=== PATIENT | female | born 1990 | race Caucasian/White ===

== ENCOUNTER 2018-12-15 13:58 | Outpatient (CLI) | payer MEDICAID ==
[~2018-12-15] VITALS: Ht 149.9 cm; Wt 60.5 kg
[~2018-12-15 13:58] MED LIST: NEXPLANON68 MG ID
--- NOTE | 2018-12-15 14:04 | NUR ---
1404-36.1WEEK G2L1 PATIENT OF DR. CHRISTIANSON AMBULATORY TO LR6 WITH COMPLAINTS OF LOSING MUCUS PLUG A COUPLE OF DAYS AGO AND "INTERMITTENT CONTRACTIONS SOMETIMES GETTING TO 10 MIN APART" DENIES LOF OR VB. REPORTS GOOD MOVEMNT. ASSISTED INTO GOWN AND PLACED ON EFM. 1413-SVE 2-3/50/-3, VSS, ASSESSMENT COMPLETE. 1500-DR. MARTINEZ UPDATED ON PATIENT, REVIEWED SVE AND STRIP. ORDERS TO D/C HOME IF NO CHANGE IN CERVIX. 1512-SVE BY BOGDAN,RN AND LUCHO ARRIETA NO CHANGE IN CERVIX 2-3/50/-3, BOWI. 1514-OFF EFM. INSTRUCTED ON DISCHARGE INSTURCTIONS. PATIENT DENIES QUESTIONS. 1520-AMBULATORY OFF UNIT.
[2018-12-15 14:16] VITALS: BP 112/69; PULSE 109; TEMP 98.2
[2018-12-15 14:30] VITALS: BP 112/69; PULSE 109; TEMP 98.2
[2018-12-15 15:14] VITALS: BP 106/60; PULSE 93
== END 2018-12-15 15:20 | disposition home or self-care (01) ==
LOC: LDRO 13:58 → LDR 14:04 → LDRO 15:20
DX: O62.9 Abnormality of forces of labor, unspecified (principal); Z3A.36 36 weeks gestation of pregnancy
CPT/HCPCS: OP

== ENCOUNTER 2018-12-21 21:47 | Outpatient (CLI) | payer MEDICAID ==
[~2018-12-21] VITALS: Ht 152.4 cm; Wt 61.8 kg
--- NOTE | 2018-12-21 21:45 | NUR ---
G2L1. 37-0. Ambulatory to LDR 2 with signifcant other. Clean gown on. EFM and TOCO explained and applied. Pt states she has not felt baby move in the past 3 hours. She has tried moving and drink cold fluids and nothing has worked. Pt states baby is normally very active. Denies LOF of vaginal bleeding. Pt states her lower abdomen has been tightening inrreguallarly but she does not think they are contractions. Difficulty tracing contractions due to toco position and mom's movement in bed. RN remains at bedside adjusting monitors and reviewing FHR strip due to central monitoring being down. 2214: FHR 115bpms with moderate varibality, no accels or decels noted. Pt given juice and instructed to drink quickly. RN remains at bedside reviewing FHR strip. 2224: Pt states she is feeling tightening. Contraction palpated moderate with relaxing period. SVE /-2 which is what she was in office last. RN remains at bedside reveiwing FHR strip. 2258: FHR strip reacitive. Pt states she has felt baby move multiple times since being at hospital. called and updated on pts status. See physican notification. 2300: Pt off monitors and educated on new orders. 2313: Discharge education/instructions given to pt and signifant other who verbalize understanding. Pt ambulatory off unit with signifant other.
[2018-12-21 22:01] VITALS: BP 106/70; PULSE 79; TEMP 98
== END 2018-12-21 23:13 | disposition home or self-care (01) ==
LOC: LDRO 21:47
DX: O62.9 Abnormality of forces of labor, unspecified (principal); Z3A.37 37 weeks gestation of pregnancy

== ENCOUNTER 2018-12-23 23:06 | Outpatient (CLI) | payer MEDICAID ==
[~2018-12-23] VITALS: Ht 152.4 cm; Wt 61.8 kg
--- NOTE | 2018-12-23 23:15 | NUR ---
G2L1. 37-2. Ambulatory to LDR 3 with significant other. Clean gown on. EFM and TOCO explained and applied. Pt states she has been paola for the last hour and contractions have been 4-5minutes apart. Denies LOF or vaginal bleeding. Reports good movement. SVE /-2, ballotable. Vital signs and assessment completed. Plan of care explained to pt and significant other who verbalize understanding. Call light within reach.
[2018-12-23 23:24] VITALS: BP 106/66; PULSE 94; TEMP 97.6
--- NOTE | 2018-12-24 00:33 | NUR ---
SVE unchanged. 0038: Roles updated on pt's status. See physican notification. 0044: Pt updated on discharge orders and taken off monitors to change. 0054: Discharge education and instructions given to pt and significant other who verbalize understanding. All questions and concerns answered. Pt ambulatory off unit and home with significant other.
== END 2018-12-24 00:54 | disposition home or self-care (01) ==
LOC: LDRO 23:06
DX: O62.9 Abnormality of forces of labor, unspecified (principal); Z3A.37 37 weeks gestation of pregnancy

== ENCOUNTER 2019-01-02 21:24 | Inpatient (IN) | payer MEDICAID ==
[~2019-01-02] VITALS: Ht 152.4 cm; Wt 62.7 kg
[2019-01-02 21:38] VITALS: BP 100/61; PULSE 103; TEMP 98.1
[2019-01-02] MEDS ORDERED: CLARITIN 1010 MG/TAB PO (21:43)
[2019-01-02 22:00] VITALS: BP 100/61; PULSE 103; TEMP 98.1
--- NOTE | 2019-01-02 23:00 | NUR ---
222- Report taken from LUCHO Penn. Admit orders received. 2229- IV started. Labs drawn. Consents signed. 2244- RN at bedside. Questions encouraged and answered.
[2019-01-02 23:15] VITALS: BP 121/57; PULSE 95
[2019-01-02 23:20] LABS: BASO % 0.3 % (0.0-2.0); EOS # 0.2 (0.0-0.7); EOS % 1.8 % (0-4.0); GRAN # 11.1 (1.4-6.5); HEMATOCRIT 35.4 % (37.0-47.0); HEMOGLOBIN 11.7 g/dl (12.5-16.0); LYMPH # 1.3 (1.2-3.4); LYMPH % 9.7 % (20.0-51.0); MEAN CELL VOLUME 95 fl (80.0-100.0); MEAN CORPUSCULAR HEMOGLOBIN 31 pg (27.0-31.0); MEAN CORPUSCULAR HGB CONC 33 g/dl (33.0-37.0); MEAN PLATELET VOLUME 10.9 fl (7.4-10.4); MONO # 0.8 (0.1-0.6); PLATELET COUNT 155 K/mm3 (130-400); RED BLOOD COUNT 3.73 M/mm3 (4.10-5.30); REDCELL DISTRIBUTION WIDTH-CV 13.5 % (11.5-14.5)
[2019-01-02 23:30] VITALS: BP 101/68; PULSE 100
[2019-01-02 23:45] VITALS: BP 109/64; PULSE 99
[2019-01-03] VITALS (60 sets, daily range): BP systolic 89–114; BP diastolic 50–76; PULSE 55–109; TEMP 97.3–99.3
--- NOTE | 2019-01-03 05:00 | NUR ---
0145- Patient is requesting an epidural. CARLEY Angel notified. 0200- Patient sitting upright on edge of bed for epidural placement. 0210- Single Shot. See Anesthesia Record. 0230- SVE /-2 0500- SVE -/-2
--- NOTE | 2019-01-03 06:20 | NUR ---
06-Recieved report from Micah. Patient WR in bed with Villasenor to DD, johnny clear urine in villasenor, IVF to right hand. Comfortable with PETER. Updated on plan of care. 629-Pitocin started per Dr. Vallejo order from previous RN. Repositoned WL.
--- NOTE | 2019-01-03 07:05 | NUR ---
0705-APRLI /-1ELIEZER. Repositioned back WL 0706-Dr.Goodpasture montes de oca see physician notification. Pitocin shut off per MD order.
--- NOTE | 2019-01-03 07:55 | NUR ---
0755-VARIABLE DECEL DOWN TO 70BPM WITH QUICK RETURN TO BASELINE FHR 125-130BPM. REPOSITIOINED WR.
--- NOTE | 2019-01-03 08:16 | NUR ---
0816-VARIBAL DECEL DOWN TO 70BPM, SVE /-1 REPOSITIONED RL, RECURRENT VARAIBLE DECEL DOWN TO 60BPM WITH SPONTANEOUS RETURN TO BASELINE. REPOSITIONED LL, IVF BOLUS. 0863-DR. MARTINEZ UPDATED ON SVE AND STRIP, SEE PHYSICIAN NOTIFICATION.
--- NOTE | 2019-01-03 08:44 | NUR ---
0844-intermittent deep variable decels continue with spontaneous return to baseline, RN continues to reposition. RL at this time. 0850-FHR with moderate variability, no decels at this time +accels. 0902-Dr. Miranda on unit. Reviews FHR monitor. 0908-SVE by , /1, AROM by MD, clear fluid noted. Minoo care provided. Repositioned WR. 0913-FHR decel down to 55bpm lasting 60sec Repositioined RL and IVF bolus started. 0917-Recurrent Variable down to 60 with quick return to baseline. SVE unchanged.Dr. Miranda remains on unit, updated. No new orders.
--- NOTE | 2019-01-03 09:37 | NUR ---
0937-DEEP VARIABLE DOWN TO 60BPM, LASTING 60SEC, REPOSITIONED RL, SVE /-1 BY LUCHO CARTWRIGHT , RECURRENT VARAIBLE DECEL DOWN TO 60BPM REPOSITIONED LL. 0955-REPOSITIONED RL. 1000-DR. MARTINEZ UPDATED ON PATIENT. LEFT MESSAGE WITH CLINIC RN. 1012-DR. MARTINEZ CALLED BACK TO UNIT AND REQUEST PITOCIN STARTED AT 2MU/MIN, SEE PHYSICIAN NOTIFICATION. PIT STARTED PER MD ORDERS.
--- NOTE | 2019-01-03 11:06 | NUR ---
1106-SVE 100/0, VARIBLE DECELS FOLLWOING SVE. DR. MARTINEZ'S NURSER UPDATED, SEE PHYSICIAN NOTIFICATION. REPOSITIONED RL WITH PEANUT BALL.
--- NOTE | 2019-01-03 11:35 | NUR ---
1135-SVE /+1, Joseph discontinued. Repositioned WL. Updated Dr. Miranda, See physician notification. 1152-Dr. Miranda to patient room. Set up for delivery. 1156-Patient begins pushing with contraction with Dr. Miranda at bedside. Moves vertex well. 1200-Varibal decel down to 60bpm follwing pushing, oxygen via oxymask placed 10l/min. Patient continues to push with contractions. 1204-Delivery of head immediately followed by body. MD suctions mouth and nose. Spontaneous cry of viable male . Infant to mothers abdomen. Cord clamped x2 and cut by FOB. Care of infant assumed by LUCHO Tavarez Apgars 8/9/9. 1207-Spontaneous delivery of intact placenta by Dr. Miranda, fundal massage firm, Lochia WNL. EBL 100ml. Pitocin bolus per MD order and protocol. Pericare provided. Updated on safety. Ice to perineum.
--- NOTE | 2019-01-03 18:00 | NUR ---
Rests in bed, alert. Family at bedside, denies any needs at this time.
[2019-01-04] VITALS: BP 88/41; PULSE 73; TEMP 97.8
[2019-01-04 05:00] VITALS: BP 99/68; PULSE 95; TEMP 98
[2019-01-04 08:20] VITALS: BP 102/54; PULSE 76; TEMP 97.2
--- NOTE | 2019-01-04 08:54 | NUR ---
Initial visit; Parents thanked Wheel Braider for offering congratulations and God's blessings for the of their son. Wheel Braider thanked them for choosing [facility].
[2019-01-04] MEDS ORDERED: PERCOCET 325 MG1 TA2 PO (10:31)
[2019-01-04] MEDS ORDERED: IBU600 MG PO (10:31)
[2019-01-04 12:30] VITALS: BP 92/59; PULSE 90; TEMP 98.1
[2019-01-04 15:40] VITALS: BP 103/70; PULSE 96; TEMP 98.1
[2019-01-04 20:30] VITALS: BP 103/60; PULSE 79; TEMP 97.8
[2019-01-05 08:00] VITALS: BP 105/69; PULSE 89; TEMP 98.5
--- NOTE | 2019-01-05 11:20 | NUR ---
1120-REVIEWED DISCHARGE INSTRUCTIONS WITH PATIENT. PATIENT DENIES QUESTIONS. PROVIDED PRESCRIPTIONS. 1125-AMBULATORY OFF UNIT WITH SPOUSE AND .
== END 2019-01-05 11:25 | disposition home or self-care (01) | DRG 807 ==
LOC: LDRO 21:24 → LDR 22:30 → OB 01-03 14:15
PROVIDERS: ADMIT Student in an Organized Health Care Education/Training Program
PROC: 10E0XZZ Delivery of Products of Conception, External Approach (ICD-10-PCS; principal; 2019-01-03)
PROC: 0UQMXZZ Repair Vulva, External Approach (ICD-10-PCS; 2019-01-03)
DX: O75.82 Onset (spontaneous) of labor after 37 completed weeks of gestation but before 39 completed weeks gestation, with delivery by (planned) cesarean section (principal); Z37.0 Single live birth; O71.82 Other specified trauma to perineum and vulva; Z3A.38 38 weeks gestation of pregnancy; Z87.891 Personal history of nicotine dependence
CPT/HCPCS: J2590; J2795; J7120

== ENCOUNTER 2019-10-10 11:28 | Emergency (ER) | payer SELFPAY ==
[~2019-10-10] VITALS: Ht 162.6 cm; Wt 63.6 kg
[~2019-10-10 11:28] MED LIST changes: +CLARITIN 1010 MG/TAB PO; +IBU600 MG PO; +PERCOCET 325 MG1 TA2 PO
[2019-10-10 11:35] VITALS: BP 133/75
[2019-10-10 12:02] VITALS: TEMP 99
[2019-10-10 12:05] LABS: STREP SCREEN NEGATIVE
[2019-10-10 12:35] VITALS: PULSE 104
== END 2019-10-10 12:38 | disposition home or self-care (01) ==
LOC: COL.ER 11:28
PROVIDERS: Physician Assistant
DX: J11.1 Influenza due to unidentified influenza virus with other respiratory manifestations (principal); F17.210 Nicotine dependence, cigarettes, uncomplicated